=== PATIENT | male | born 1980 | race Caucasian/White ===

== ENCOUNTER 2016-12-09 15:13 | Inpatient (IN) | payer OTHER ==
[2016-12-09 18:25] VITALS: BMI 21.1
--- NOTE | 2016-12-09 20:14 | HP ---
CIWA Score - CIWA Score Nausea/Vomitin Muscle Tremors: 4-Moderate,w/Arms Extend Anxiety: 4-Mod. Anxious/Guarded Agitation: 4-Moderately Restless Paroxysmal Sweats: 3 Orientation: 2-Disoriented Date<2 days Tacttile Disturbances: 0-None Auditory Disturbances: 0-None Visual Disturbances: 3-Moderate Sensitivity Headache: 0-None Present CIWA-Ar Total Score: 23 Admission ROS BHS - HPI Chief Complaint: C/O WITHDRAWAL SX'S. SEEKING DETOX TXMENT Allergies/Adverse Reactions: Allergies Allergy/AdvReac Type Severity Reaction Status Date / Time No Known Allergies Allergy Verified 12/09/16 18:49 History of Present Illness: 36 Y.O. MLAE WITH OPIOID, ALCOHOLISM, BENZO DEPENDENCE ADMITTED FOR DETOX TXMENT. CLIENT IS CURRENTLY ON MMTP LDM 12/08/16 WITH TAKE HOME BOTTLE. PROGRAM GUY YANG PENDING VERIFICATION. CLIENT IS KNOWN TO [facility]. REPORTS LONGEST CLEAN TIME 6 MONTHS. Exam Limitations: No Limitations - Ebola screening Have you traveled outside of the country in the last 21 days: No Have you had contact with anyone from an Ebola affected area: No Have you been sick,other than usual withdrawal symptoms: No Do you have a fever: No - Review of Systems Constitutional: Chills, Unintentional Wgt. Loss EENT: reports: No Symptoms Reported Respiratory: reports: No Symptoms reported Cardiac: reports: No Symptoms Reported GI: reports: Nausea, Poor Appetite : reports: No Symptoms Reported Musculoskeletal: reports: No Symptoms Reported Integumentary: reports: No Symptoms Reported Neuro: reports: Seizure (ALCOHL AND BENZO WITHDRAWAL RELATED) Endocrine: reports: No Symptoms Reported Hematology: reports: No Symptoms Reported Psychiatric: reports: No Sypmtoms Reported Other Systems: Reviewed and Negative Patient History - Patient Medical History Hx Anemia: No Hx Asthma: No Hx Chronic Obstructive Pulmonary Disease (COPD): No Hx Cancer: No Hx Cardiac Disorders: No Hx Congestive Heart Failure: No Hx Hypertension: No Hx Hypercholesterolemia: No Hx Pacemaker: No HX Cerebrovascular Accident: No Hx Seizures: Yes (drug related) Hx Dementia: No Hx Diabetes: No Hx Gastrointestinal Disorders: No Hx Liver Disease: No Hx Genitourinary Disorders: No Hx Sexually Transmitted Disorders: No Hx Renal Disease (ESRD): No Hx Thyroid Disease: No Hx Human Immunodeficiency Virus (HIV): No Hx Hepatitis C: Yes (WAS TX'ED) Hx Depression: Yes (no med) Hx Suicide Attempt: No Hx Bipolar Disorder: No Hx Schizophrenia: No Other Medical History: DENIES - Patient Surgical History Past Surgical History: No Hx Neurologic Surgery: No Hx Cataract Extraction: No Hx Cardiac Surgery: No Hx Lung Surgery: No Hx Breast Surgery: No Hx Breast Biopsy: No Hx Abdominal Surgery: No Hx Appendectomy: No Hx Cholecystectomy: No Hx Genitourinary Surgery: No Hx Section: No Hx Orthopedic Surgery: No Anesthesia Reaction: No - PPD History Previous Implant?: Yes Documented Results: Negative w/proof Implanted On Prior R Admission?: Yes Date: 08/08/12 Results: 0 mm PPD to be Administered?: Yes - Smoking Cessation Smoking history: Current every day smoker Have you smoked in the past 12 months: Yes Aproximately how many cigarettes per day: 20 Cigars Per Day: 0 Hx Chewing Tobacco Use: No Initiated information on smoking cessation: Yes 'Breaking Loose' booklet given: 12/09/16 - Substance & Tx. History Hx Alcohol Use: Yes Hx Substance Use: Yes Substance Use Type: Alcohol, Cocaine, Marijuana, Tranquilizers (BENZO/KLONOPIN) Hx Substance Use Treatment: Yes ([facility]) - Substances Abused Alprazolam/KLONOPIN (Xanax) Route: Oral Frequency: Daily Amount used: 6mg Age of first use: 22 Date of Last Use: 12/09/16 BEER Route: Oral Frequency: Daily Amount used: 6- 8OZ BEERS Age of first use: 22 Date of Last Use: 12/08/16 COCAINE Route: Injection Frequency: 3-6 times per week Amount used: $20 Age of first use: 22 Date of Last Use: 12/08/16 THC Route: Smoking Frequency: Daily Amount used: $10 Age of first use: 18 Date of Last Use: 12/08/16 Family Disease History - Family Disease History Family Disease History: CA: Mother (), Other: Father (ESTRANGED) Admission Physical Exam BHS - Vital Signs Vital Signs: Vital Signs - 24 hr 12/09/16 18:18 Temperature 97.1 F L Pulse Rate 78 Respiratory 16 Rate Blood Pressure 102/59 - Physical General Appearance: Yes: Mild Distress, Tremorous, Irritable HEENTM: Yes: EOMI, Normocephalic, Normal Voice, PLACIDO, Pharynx Normal Respiratory: Yes: Chest Non-Tender, Lungs Clear, Normal Breath Sounds, No Respiratory Distress, No Accessory Muscle Use Neck: Yes: No masses,lesions,Nodules, Supple, Trachea in good position Breast: Yes: Breast Exam Deferred Cardiology: Yes: Regular Rhythm, Regular Rate, S1, S2 Abdominal: Yes: Normal Bowel Sounds, Non Tender, Flat, Soft Genitourinary: Yes: Within Normal Limits Back: Yes: Normal Inspection Musculoskeletal: Yes: full range of Motion, Gait Steady Extremities: Yes: Normal Capillary Refill, Normal Range of Motion, Non-Tender, Tremors 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, Alert, Motor Strength 5/5 Integumentary: Yes: Normal Color, Warm, Moist, Track [place] Lymphatic: Yes: Within Normal Limits - Diagnostic (1) seizure drug related Current Visit: Yes Status: Chronic (2) Alcohol dependence with uncomplicated withdrawal Current Visit: Yes Status: Chronic (3) Opioid dependence with withdrawal Current Visit: Yes Status: Chronic (4) Sedative, hypnotic or anxiolytic dependence with withdrawal, uncomplicated Current Visit: Yes Status: Chronic (5) Cocaine dependence, uncomplicated Current Visit: Yes Status: Chronic (6) Cannabis dependence, uncomplicated Current Visit: Yes Status: Chronic (7) Methadone maintenance therapy patient Current Visit: Yes Status: Chronic (8) Nicotine dependence Current Visit: Yes Status: Chronic Qualifiers: Nicotine product type: cigarettes Substance use status: uncomplicated Qualified Code(s): F17.210 - Nicotine dependence, cigarettes, uncomplicated Cleared for Admission [facility] - Detox or Rehab [facility] Level of Care: Medically Managed Detox Regimen/Protocol: Librium [facility] Breath Alcohol Content Breath Alcohol Content: 0 Urine Drug Screen - Results Drug Screen Negative: No Urine Drug Screen Results: THC-Marijuana, FABIOLA-Cocaine, OPI-Opiates, MTD- Methadone
[2016-12-09] MEDS ORDERED: ACETAMINOPHEN 325 MG TABLET (FP) PO PRN (20:28)
[2016-12-09] MEDS ORDERED: guaiFENesin/D-METHORPHAN HB 10 ML UNIT-DOSE CUPS PO PRN (20:28)
[2016-12-09] MEDS ORDERED: LOPERAMIDE HCL 2 MG CAPSULE PO PRN (20:28)
[2016-12-09] MEDS ORDERED: MENTHOL/PHENOL 1 EACH UD MM PRN (20:28)
[2016-12-09] MEDS ORDERED: MAGNESIUM CITRATE 300 ML BOTTLE PO PRN (20:28)
[2016-12-09] MEDS ORDERED: chlordiazePOXIDE HCL 25 MG CAPSULE PO PRN (20:28)
[2016-12-09] MEDS ORDERED: MAGNESIUM HYDROX 2400MG/30ML ORAL SUSPENSION 30 ML CUP PO PRN (20:28)
[2016-12-09] MEDS ORDERED: IBUPROFEN 400 MG TABLET (FP) PO PRN (20:28)
[2016-12-09] MEDS ORDERED: hydrOXYzine PAMOATE 50 MG CAPSULE (FP) PO PRN (20:28)
[2016-12-09] MEDS ORDERED: MAG HYDROX/AL HYDROX/SIMETH 30 ML UNIT-DOSE CUP PO PRN (20:28)
[2016-12-09] MEDS ORDERED: P-EPHED 60MG/TRIPROLIDI 2.5MG TABLET PO PRN (20:28)
[2016-12-09] MEDS: THIAMINE HCL 100 MG TABLET (FP) PO SCH (21:42)
[2016-12-09] MEDS: NICOTINE 21 MG/24 HOURS TOPICAL PATCH TD SCH (21:46)
[2016-12-09] MEDS: chlordiazePOXIDE HCL 25 MG CAPSULE PO SCH (22:06)
[2016-12-09] MEDS: diphenhydrAMINE HCL 50 MG CAPSULE PO PRN (22:06)
[2016-12-09 23:14] LABS: URINE APPEARANCE CLEAR; URINE BILIRUBIN NEGATIVE (NEGATIVE); URINE BLOOD NEGATIVE (NEGATIVE); URINE COLOR YELLOW; URINE GLUCOSE (UA) NEGATIVE (NEGATIVE); URINE KETONE NEGATIVE (NEGATIVE); URINE LEUK ESTERASE NEGATIVE (NEGATIVE); URINE NITRITE NEGATIVE (NEGATIVE); URINE UROBILINOGEN NEGATIVE E.U./dl (0.2-1.0)
[2016-12-09 23:15] LABS: URINE PROTEIN 1+ (NEGATIVE)
[2016-12-09 23:18] LABS: URINE MUCUS RARE; URINE RBC <1 /hpf (0-3); URINE WBC <1 /hpf (3-5)
[2016-12-10] MEDS: chlordiazePOXIDE HCL 25 MG CAPSULE PO SCH (05:47)
[2016-12-10] MEDS: METHADONE HCL 10 MG TABLET PO SCH (07:28)
[2016-12-10] MEDS ORDERED: diazePAM 5 MG TABLET PO ONE (09:11)
[2016-12-10] MEDS: NICOTINE 21 MG/24 HOURS TOPICAL PATCH TD SCH (09:40)
[2016-12-10] MEDS: NICOTINE POLACRILEX 2 MG GUM BC PRN ×4 (09:41→22:03)
[2016-12-10] MEDS: PRENATAL VITAMINS W/ FOLIC ACID TABLET (FP) PO SCH (09:41)
--- NOTE | 2016-12-10 09:50 | PN ---
S CIWA - CIWA Score Nausea/Vomitin-No Nausea/No Vomiting Muscle Tremors: 3 Anxiety: 4-Mod. Anxious/Guarded Agitation: 4-Moderately Restless Paroxysmal Sweats: 3 Orientation: 0-Oriented Tacttile Disturbances: 0-None Auditory Disturbances: 0-None Visual Disturbances: 0-None Headache: 0-None Present CIWA-Ar Total Score: 14 BHS Progress Note (SOAP) Subjective: Anxiety,tremors,sweating,interrupted sleep,restless Objective: 12/10/16 09:48 Vital Signs - 8 hr 12/10/16 12/10/16 03:23 06:16 Temperature 96.5 F L Pulse Rate 66 Respiratory 16 16 Rate Blood Pressure 108/77 Laboratory Tests 12/09/16 22:00 Urine Color Yellow Urine Appearance Clear Urine pH 7.0 D Ur Specific [place] 1.026 Urine Protein 1+ H Urine Glucose (UA) Negative Urine Ketones Negative Urine Blood Negative Urine Nitrite Negative Urine Bilirubin Negative Urine Urobilinogen Negative Ur Leukocyte Esterase Negative Urine RBC <1 Urine WBC <1 Urine Mucus Rare U/A noted Assessment: 12/10/16 09:49 Withdrawal sx. Plan: Continue detox
[2016-12-10 10:00] LABS: MCH 29.8 pg (25.7-33.7); MCHC 33.7 g/dl (32.0-35.9); MEAN CELL VOLUME 88.3 fl (80-96); MEAN PLT VOLUME 9.2 fl (7.5-11.1); PLATELET COUNT 160 K/MM3 (134-434); RDW 13.9 % (11.9-15.9); WHITE BLOOD COUNT 4.4 K/mm3 (4.0-10.0)
[2016-12-10 10:27] LABS: ALBUMIN 3.8 g/dl (3.4-5.0); ALK PHOS 81 U/L (45-117); ANION GAP 7 (8-16); BILIRUBIN,TOTAL 0.5 mg/dL (0.2-1.0); CO2 28 mmol/L (21-32); CREATININE 0.9 mg/dL (0.7-1.3); GLUCOSE,RANDOM 87 mg/dL (74-106); SGOT/AST 33 U/L (15-37); SGPT/ALT 27 U/L (12-78); TOT PROT 7.5 g/dl (6.4-8.2)
[2016-12-10] MEDS: diazePAM 5 MG TABLET PO SCH ×2 (13:53→22:01)
--- NOTE | 2016-12-10 16:54 | EKG ---
Test Reason : Blood Pressure : / mmHG Vent. Rate : 068 BPM Atrial Rate : 068 BPM P-R Int : 166 ms QRS Dur : 098 ms QT Int : 398 ms P-R-T Axes : 064 076 061 degrees QTc Int : 423 ms NORMAL SINUS RHYTHM NORMAL ECG NO PREVIOUS ECGS AVAILABLE Confirmed by LEE SILVA MD ([id number]) on 12/10/2016 4:54:50 PM Referred By: Confirmed By:LEE SILVA MD
[2016-12-10] MEDS: diazePAM 5 MG TABLET PO PRN (17:50)
[2016-12-10] MEDS: diphenhydrAMINE HCL 50 MG CAPSULE PO PRN (22:01)
[2016-12-10] MEDS: THIAMINE HCL 100 MG TABLET (FP) PO SCH (22:01)
[2016-12-10] MEDS ORDERED: chlordiazePOXIDE HCL 25 MG CAPSULE PO SCH (23:00)
[2016-12-11] MEDS: METHADONE HCL 10 MG TABLET PO SCH (05:49)
[2016-12-11] MEDS: diazePAM 5 MG TABLET PO SCH ×3 (05:49→21:58)
--- NOTE | 2016-12-11 09:35 | PN ---
S CIWA - CIWA Score Nausea/Vomitin Muscle Tremors: 3 Anxiety: 3 Agitation: 3 Paroxysmal Sweats: 1-Minimal Palms Moist Orientation: 0-Oriented Tacttile Disturbances: 1-Very Mild Itch/Numbness Auditory Disturbances: 1-Very Mild Visual Disturbances: 1-Very Mild Sensitivity Headache: 2-Mild CIWA-Ar Total Score: 18 BHS Progress Note (SOAP) Subjective: ALERT,IRRITABLE,ANXIOUS,INTERRUPTED SLEEP,TREMOR,PAIN IN THE BODY AND BACK Objective: 12/11/16 09:33 Vital Signs Temperature 97 F L 12/11/16 06:33 Pulse Rate 63 12/11/16 06:33 Respiratory Rate 16 12/11/16 06:33 Blood Pressure 117/80 12/11/16 06:33 O2 Sat by Pulse Oximetry (%) EKG NSR,NORMAL ECG Laboratory Last Values WBC 4.4 K/mm3 (4.0-10.0) D 12/10/16 07:10 RBC 4.71 M/mm3 (4.00-5.60) 12/10/16 07:10 Hgb 14.0 GM/dL (11.7-16.9) 12/10/16 07:10 Hct 41.6 % (35.4-49) 12/10/16 07:10 MCV 88.3 fl (80-96) 12/10/16 07:10 MCHC 33.7 g/dl (32.0-35.9) 12/10/16 07:10 RDW 13.9 % (11.9-15.9) D 12/10/16 07:10 Plt Count 160 K/MM3 (134-434) 12/10/16 07:10 MPV 9.2 fl (7.5-11.1) 12/10/16 07:10 Sodium 139 mmol/L (136-145) 12/10/16 07:10 Potassium 4.9 mmol/L (3.5-5.1) 12/10/16 07:10 Chloride 104 mmol/L (98-107) 12/10/16 07:10 Carbon Dioxide 28 mmol/L (21-32) 12/10/16 07:10 Anion Gap 7 (8-16) L 12/10/16 07:10 BUN 15 mg/dL (7-18) D 12/10/16 07:10 Creatinine 0.9 mg/dL (0.7-1.3) D 12/10/16 07:10 Creat Clearance w eGFR > 60 (>60) 12/10/16 07:10 Random Glucose 87 mg/dL (74-106) 12/10/16 07:10 Calcium 9.0 mg/dL (8.5-10.1) 12/10/16 07:10 Total Bilirubin 0.5 mg/dL (0.2-1.0) D 12/10/16 07:10 AST 33 U/L (15-37) D 12/10/16 07:10 ALT 27 U/L (12-78) D 12/10/16 07:10 Alkaline Phosphatase 81 U/L (45-117) 12/10/16 07:10 Total Protein 7.5 g/dl (6.4-8.2) 12/10/16 07:10 Albumin 3.8 g/dl (3.4-5.0) 12/10/16 07:10 Urine Color Yellow 12/09/16 22:00 Urine Appearance Clear 12/09/16 22:00 Urine pH 7.0 (5.0-8.0) D 12/09/16 22:00 Ur Specific [place] 1.026 (1.001-1.035) 12/09/16 22:00 Urine Protein 1+ (NEGATIVE) H 12/09/16 22:00 Urine Glucose (UA) Negative (NEGATIVE) 12/09/16 22:00 Urine Ketones Negative (NEGATIVE) 12/09/16 22:00 Urine Blood Negative (NEGATIVE) 12/09/16 22:00 Urine Nitrite Negative (NEGATIVE) 12/09/16 22:00 Urine Bilirubin Negative (NEGATIVE) 12/09/16 22:00 Urine Urobilinogen Negative E.U./dl (0.2-1.0) 12/09/16 22:00 Ur Leukocyte Esterase Negative (NEGATIVE) 12/09/16 22:00 Urine RBC <1 /hpf (0-3) 12/09/16 22:00 Urine WBC <1 /hpf (3-5) 12/09/16 22:00 Urine Mucus Rare 12/09/16 22:00 RPR Titer Nonreactive (NONREACTIVE) 12/10/16 07:10 Assessment: 12/11/16 09:34 WITHDRAWAL SYMPTOM Plan: CONTINUE DETOX
[2016-12-11] MEDS: CYCLOBENZAPRINE HCL 10 MG TABLET (FP) PO PRN ×3 (10:06→22:00)
[2016-12-11] MEDS: cloNIDine HCL 0.1 MG TABLET PO SCH ×2 (10:06→21:58)
[2016-12-11] MEDS: PRENATAL VITAMINS W/ FOLIC ACID TABLET (FP) PO SCH (10:07)
[2016-12-11] MEDS: NICOTINE POLACRILEX 2 MG GUM BC PRN ×5 (10:07→22:02)
[2016-12-11] MEDS: diazePAM 5 MG TABLET PO PRN ×2 (10:07→17:03)
[2016-12-11] MEDS: NICOTINE 21 MG/24 HOURS TOPICAL PATCH TD SCH (10:12)
[2016-12-11] MEDS: THIAMINE HCL 100 MG TABLET (FP) PO SCH (21:59)
[2016-12-11] MEDS: hydrOXYzine PAMOATE 50 MG CAPSULE (FP) PO SCH (21:59)
[2016-12-11] MEDS ORDERED: chlordiazePOXIDE 5 MG CAPSULE PO SCH (23:00)
[2016-12-12] MEDS: METHADONE HCL 10 MG TABLET PO SCH (06:36)
[2016-12-12] MEDS: diazePAM 5 MG TABLET PO PRN ×3 (06:37→17:24)
[2016-12-12] MEDS: CYCLOBENZAPRINE HCL 10 MG TABLET (FP) PO PRN (06:37)
[2016-12-12] MEDS ORDERED: METHADONE HCL 10 MG TABLET PO SCH ×3 (10:00)
[2016-12-12] MEDS: NICOTINE 21 MG/24 HOURS TOPICAL PATCH TD SCH (10:12)
[2016-12-12] MEDS: diazePAM 5 MG TABLET PO SCH ×2 (10:13→22:01)
[2016-12-12] MEDS: cloNIDine HCL 0.1 MG TABLET PO SCH ×2 (10:13→22:00)
[2016-12-12] MEDS: PRENATAL VITAMINS W/ FOLIC ACID TABLET (FP) PO SCH (10:13)
[2016-12-12] MEDS: NICOTINE POLACRILEX 2 MG GUM BC PRN ×4 (10:14→22:01)
--- NOTE | 2016-12-12 10:45 | PN ---
BHS Progress Note (SOAP) Subjective: Sweating,interrupted sleep,restless Objective: 12/12/16 10:44 Vital Signs - 8 hr 12/12/16 12/12/16 12/12/16 03:16 06:25 09:40 Temperature 96.6 F L 97.0 F L Pulse Rate 77 89 Respiratory 18 16 18 Rate Blood Pressure 101/69 103/66 Laboratory Last Values WBC 4.4 K/mm3 (4.0-10.0) D 12/10/16 07:10 RBC 4.71 M/mm3 (4.00-5.60) 12/10/16 07:10 Hgb 14.0 GM/dL (11.7-16.9) 12/10/16 07:10 Hct 41.6 % (35.4-49) 12/10/16 07:10 MCV 88.3 fl (80-96) 12/10/16 07:10 MCHC 33.7 g/dl (32.0-35.9) 12/10/16 07:10 RDW 13.9 % (11.9-15.9) D 12/10/16 07:10 Plt Count 160 K/MM3 (134-434) 12/10/16 07:10 MPV 9.2 fl (7.5-11.1) 12/10/16 07:10 Sodium 139 mmol/L (136-145) 12/10/16 07:10 Potassium 4.9 mmol/L (3.5-5.1) 12/10/16 07:10 Chloride 104 mmol/L (98-107) 12/10/16 07:10 Carbon Dioxide 28 mmol/L (21-32) 12/10/16 07:10 Anion Gap 7 (8-16) L 12/10/16 07:10 BUN 15 mg/dL (7-18) D 12/10/16 07:10 Creatinine 0.9 mg/dL (0.7-1.3) D 12/10/16 07:10 Creat Clearance w eGFR > 60 (>60) 12/10/16 07:10 Random Glucose 87 mg/dL (74-106) 12/10/16 07:10 Calcium 9.0 mg/dL (8.5-10.1) 12/10/16 07:10 Total Bilirubin 0.5 mg/dL (0.2-1.0) D 12/10/16 07:10 AST 33 U/L (15-37) D 12/10/16 07:10 ALT 27 U/L (12-78) D 12/10/16 07:10 Alkaline Phosphatase 81 U/L (45-117) 12/10/16 07:10 Total Protein 7.5 g/dl (6.4-8.2) 12/10/16 07:10 Albumin 3.8 g/dl (3.4-5.0) 12/10/16 07:10 Urine Color Yellow 12/09/16 22:00 Urine Appearance Clear 12/09/16 22:00 Urine pH 7.0 (5.0-8.0) D 12/09/16 22:00 Ur Specific [place] 1.026 (1.001-1.035) 12/09/16 22:00 Urine Protein 1+ (NEGATIVE) H 12/09/16 22:00 Urine Glucose (UA) Negative (NEGATIVE) 12/09/16 22:00 Urine Ketones Negative (NEGATIVE) 12/09/16 22:00 Urine Blood Negative (NEGATIVE) 12/09/16 22:00 Urine Nitrite Negative (NEGATIVE) 12/09/16 22:00 Urine Bilirubin Negative (NEGATIVE) 12/09/16 22:00 Urine Urobilinogen Negative E.U./dl (0.2-1.0) 12/09/16 22:00 Ur Leukocyte Esterase Negative (NEGATIVE) 12/09/16 22:00 Urine RBC <1 /hpf (0-3) 12/09/16 22:00 Urine WBC <1 /hpf (3-5) 12/09/16 22:00 Urine Mucus Rare 12/09/16 22:00 RPR Titer Nonreactive (NONREACTIVE) 12/10/16 07:10 labs noted Assessment: 12/12/16 10:45 Withdrawal sx. Plan: Continue detox
[2016-12-12] MEDS: CYCLOBENZAPRINE HCL 10 MG TABLET (FP) PO SCH ×2 (13:25→22:00)
[2016-12-12] MEDS: THIAMINE HCL 100 MG TABLET (FP) PO SCH (22:00)
[2016-12-12] MEDS: hydrOXYzine PAMOATE 50 MG CAPSULE (FP) PO SCH (22:01)
[2016-12-12] MEDS ORDERED: chlordiazePOXIDE HCL 10 MG CAPSULE PO SCH (23:00)
[2016-12-13] MEDS: diazePAM 5 MG TABLET PO PRN (05:34)
[2016-12-13] MEDS: METHADONE HCL 10 MG TABLET PO SCH (05:35)
[2016-12-13] MEDS: CYCLOBENZAPRINE HCL 10 MG TABLET (FP) PO SCH (05:36)
[2016-12-13 06:29] VITALS: BP 103/65; PULSE 73; TEMP 96
[2016-12-13] MEDS ORDERED: diazePAM 5 MG TABLET PO SCH (10:00)
--- NOTE | 2016-12-13 11:37 | DS ---
[facility] Detox Discharge Summary Admission Date: 12/09/16 Discharge Date: 12/13/16 - History Present History: Alcohol Dependence, Cannabis Dependence, Cocaine Dependence, Sedative Dependence Additional Comments: ADVISED PATIENT TO FOLLOW-UP WITH [facility] / REHAB MEDICAL PROVIDER AFTER DISCHARGE FROM DETOX FOR GENERAL MEDICAL ASSESSMENT AND FOR ANY ABNORMAL ADMISSION LAB VALUES. Pertinent Past History: Seizures (drug-related), Hep C (Treated), Depression. - Physical Exam Results Vital Signs: Vital Signs Temperature 96 F L 12/13/16 06:28 Pulse Rate 73 12/13/16 06:28 Respiratory Rate 18 12/13/16 06:28 Blood Pressure 103/65 12/13/16 06:28 O2 Sat by Pulse Oximetry (%) Pertinent Admission Physical Exam Findings: WITHDRAWAL SYMPTOMS. Laboratory Last Values WBC 4.4 K/mm3 (4.0-10.0) D 12/10/16 07:10 RBC 4.71 M/mm3 (4.00-5.60) 12/10/16 07:10 Hgb 14.0 GM/dL (11.7-16.9) 12/10/16 07:10 Hct 41.6 % (35.4-49) 12/10/16 07:10 MCV 88.3 fl (80-96) 12/10/16 07:10 MCHC 33.7 g/dl (32.0-35.9) 12/10/16 07:10 RDW 13.9 % (11.9-15.9) D 12/10/16 07:10 Plt Count 160 K/MM3 (134-434) 12/10/16 07:10 MPV 9.2 fl (7.5-11.1) 12/10/16 07:10 Sodium 139 mmol/L (136-145) 12/10/16 07:10 Potassium 4.9 mmol/L (3.5-5.1) 12/10/16 07:10 Chloride 104 mmol/L (98-107) 12/10/16 07:10 Carbon Dioxide 28 mmol/L (21-32) 12/10/16 07:10 Anion Gap 7 (8-16) L 12/10/16 07:10 BUN 15 mg/dL (7-18) D 12/10/16 07:10 Creatinine 0.9 mg/dL (0.7-1.3) D 12/10/16 07:10 Creat Clearance w eGFR > 60 (>60) 12/10/16 07:10 Random Glucose 87 mg/dL (74-106) 12/10/16 07:10 Calcium 9.0 mg/dL (8.5-10.1) 12/10/16 07:10 Total Bilirubin 0.5 mg/dL (0.2-1.0) D 12/10/16 07:10 AST 33 U/L (15-37) D 12/10/16 07:10 ALT 27 U/L (12-78) D 12/10/16 07:10 Alkaline Phosphatase 81 U/L (45-117) 12/10/16 07:10 Total Protein 7.5 g/dl (6.4-8.2) 12/10/16 07:10 Albumin 3.8 g/dl (3.4-5.0) 12/10/16 07:10 Urine Color Yellow 12/09/16 22:00 Urine Appearance Clear 12/09/16 22:00 Urine pH 7.0 (5.0-8.0) D 12/09/16 22:00 Ur Specific [place] 1.026 (1.001-1.035) 12/09/16 22:00 Urine Protein 1+ (NEGATIVE) H 12/09/16 22:00 Urine Glucose (UA) Negative (NEGATIVE) 12/09/16 22:00 Urine Ketones Negative (NEGATIVE) 12/09/16 22:00 Urine Blood Negative (NEGATIVE) 12/09/16 22:00 Urine Nitrite Negative (NEGATIVE) 12/09/16 22:00 Urine Bilirubin Negative (NEGATIVE) 12/09/16 22:00 Urine Urobilinogen Negative E.U./dl (0.2-1.0) 12/09/16 22:00 Ur Leukocyte Esterase Negative (NEGATIVE) 12/09/16 22:00 Urine RBC <1 /hpf (0-3) 12/09/16 22:00 Urine WBC <1 /hpf (3-5) 12/09/16 22:00 Urine Mucus Rare 12/09/16 22:00 RPR Titer Nonreactive (NONREACTIVE) 12/10/16 07:10 LABS NOTED. - Treatment Hospital Course: Detox Protocol Followed, Detoxed Safely, Responded well, Discharged Condition Good, Rehab Referral Accepted Patient has Accepted a Rehab Referral to: YES - [facility]. - Medication Discharge Medications: Ambulatory Orders NK [No Known Home Medication] 12/09/16 - Diagnosis (1) Anxiety disorder Status: Chronic (2) Cocaine dependence Status: Acute (3) DEPRESSION Status: Chronic (4) Hepatitis C carrier Status: Chronic (5) Sedative dependence Status: Acute (6) Weight decreased Status: Acute (7) Alcohol dependence with uncomplicated withdrawal Status: Acute (8) Cannabis dependence, uncomplicated Status: Acute (9) Cocaine dependence, uncomplicated Status: Acute (10) Nicotine dependence Status: Chronic Qualifiers: Nicotine product type: cigarettes Substance use status: uncomplicated Qualified Code(s): F17.210 - Nicotine dependence, cigarettes, uncomplicated (11) Sedative, hypnotic or anxiolytic dependence with withdrawal, uncomplicated Status: Acute (12) seizure drug related Status: Chronic (13) Opioid dependence Status: Chronic (14) Methadone maintenance therapy patient Status: Chronic - AMA Did Patient Leave Against Medical Advice: No
== END 2016-12-13 09:10 | disposition home or self-care (01) | DRG 773 ==
LOC: YASAS 15:13 → Y3N 18:24
PROVIDERS: ADMIT Internal Medicine; ATTEND Internal Medicine
PROC: HZ2ZZZZ Detoxification Services for Substance Abuse Treatment (ICD-10-PCS; principal; 2016-12-13)
DX: F11.20 Opioid dependence, uncomplicated (principal); F13.230 Sedative, hypnotic or anxiolytic dependence with withdrawal, uncomplicated; F10.230 Alcohol dependence with withdrawal, uncomplicated; F14.20 Cocaine dependence, uncomplicated; F12.20 Cannabis dependence, uncomplicated; F17.210 Nicotine dependence, cigarettes, uncomplicated; F32.9 Major depressive disorder, single episode, unspecified; G40.509 Epileptic seizures related to external causes, not intractable, without status epilepticus; B18.2 Chronic viral hepatitis C; R63.4 Abnormal weight loss; Z68.21 Body mass index [BMI] 21.0-21.9, adult
CPT/HCPCS: 36415; 80053; 81003; 81015; 85027; 86593; 93005; 93010

== ENCOUNTER 2021-01-26 10:23 | Inpatient (IN) | payer OTHER ==
[2021-01-26 12:33] VITALS: BMI 19.5
[2021-01-26] MEDS ORDERED: MAG HYDROX/AL HYDROX/SIMETH 30 ML UNIT-DOSE CUP PO PRN (12:33)
[2021-01-26] MEDS ORDERED: IBUPROFEN 400 MG TABLET (FP) PO PRN (12:33)
[2021-01-26] MEDS ORDERED: BISMUTH SUBSALICYLATE 524 MG/30 ML UD PO PRN (12:33)
[2021-01-26] MEDS ORDERED: ACETAMINOPHEN 325 MG TABLET (FP) PO PRN ×2 (12:33)
[2021-01-26] MEDS ORDERED: MENTHOL/PHENOL 1 EACH UD MM PRN (12:33)
[2021-01-26] MEDS ORDERED: ONDANSETRON *ODT* 4 MG TABLET SL PRN (12:33)
[2021-01-26] MEDS ORDERED: MAGNESIUM CITRATE 300 ML BOTTLE PO PRN (12:33)
[2021-01-26] MEDS ORDERED: MAGNESIUM HYDROX 2400MG/30ML ORAL SUSPENSION 30 ML CUP PO PRN (12:33)
[2021-01-26] MEDS ORDERED: diazePAM 5 MG TABLET ONE (13:00)
[2021-01-26] MEDS: diazePAM 5 MG TABLET PO SCH ×3 (13:04→22:20)
[2021-01-26] MEDS: hydrOXYzine PAMOATE 25 MG CAPSULE (FP) PO SCH ×3 (14:17→22:20)
[2021-01-26] MEDS: PRENATAL VITAMINS W/ FOLIC ACID TABLET (FP) PO SCH (16:03)
[2021-01-26] MEDS: diazePAM 5 MG TABLET PO PRN (16:06)
[2021-01-26] MEDS: NICOTINE POLACRILEX 2 MG GUM BUC PRN ×2 (16:10→20:22)
[2021-01-26 17:20] LABS: CALCIUM 8.7 mg/dL (8.5-10.1)
[2021-01-26 17:21] LABS: BLOOD UREA NITROGEN 14.2 mg/dL (7-18)
[2021-01-26 17:24] LABS: CREATININE 0.8 mg/dL (0.55-1.3)
[2021-01-26 17:25] LABS: BILIRUBIN,TOTAL 0.5 mg/dL (0.2-1); TOT PROT 7.5 g/dl (6.4-8.2)
[2021-01-26 17:27] LABS: HEMATOCRIT 38.4 % (35.4-49); MCH 30.9 pg (25.7-33.7); MEAN PLT VOLUME 9.7 fl (7.5-11.1); PLATELET COUNT 151 K/MM3 (134-434); RBC 4.22 M/mm3 (4.00-5.60); RDW 13.2 % (11.9-15.9); WHITE BLOOD COUNT 5.3 K/mm3 (4.0-10.0)
[2021-01-26] MEDS ORDERED: MELATONIN 5 MG TABLETS PO SCH (22:00)
[2021-01-26] MEDS: THIAMINE HCL 100 MG TABLET (FP) PO SCH (22:20)
[2021-01-27] MEDS: diazePAM 5 MG TABLET PO SCH ×4 (05:50→22:20)
[2021-01-27] MEDS: hydrOXYzine PAMOATE 25 MG CAPSULE (FP) PO SCH ×5 (05:50→22:19)
[2021-01-27] MEDS ORDERED: METHADONE HCL 10 MG TABLET ONE (06:44)
[2021-01-27] MEDS ORDERED: METHADONE HCL 40 MG DISPERSABLE TABLET ONE (06:45)
[2021-01-27] MEDS: METHADONE 40 MG, METHADONE 30 MG PO SCH (06:45)
[2021-01-27] MEDS ORDERED: METHADONE HCL 40 MG DISPERSABLE TABLET PO SCH (10:00)
[2021-01-27] MEDS ORDERED: METHADONE 40 MG, METHADONE 30 MG PO SCH (10:00)
[2021-01-27] MEDS: PRENATAL VITAMINS W/ FOLIC ACID TABLET (FP) PO SCH (10:20)
[2021-01-27] MEDS: NICOTINE POLACRILEX 2 MG GUM BUC PRN ×4 (10:21→22:23)
[2021-01-27] MEDS: diazePAM 5 MG TABLET PO PRN (13:04)
[2021-01-27] MEDS: THIAMINE HCL 100 MG TABLET (FP) PO SCH ×2 (22:19→23:44)
[2021-01-27] MEDS: MELATONIN 5 MG TABLETS PO PRN (22:20)
[2021-01-27] MEDS: METHOCARBAMOL 500 MG TABLET PO PRN (22:21)
[2021-01-28] MEDS ORDERED: METHADONE HCL 10 MG TABLET ONE (04:58)
[2021-01-28] MEDS ORDERED: METHADONE HCL 40 MG DISPERSABLE TABLET ONE (04:59)
[2021-01-28] MEDS: hydrOXYzine PAMOATE 25 MG CAPSULE (FP) PO SCH ×5 (06:21→22:09)
[2021-01-28] MEDS: diazePAM 5 MG TABLET PO SCH ×3 (06:21→22:09)
[2021-01-28] MEDS: METHADONE 40 MG, METHADONE 30 MG PO SCH (06:22)
[2021-01-28] MEDS: NICOTINE POLACRILEX 2 MG GUM BUC PRN ×5 (06:25→22:12)
[2021-01-28] MEDS: PRENATAL VITAMINS W/ FOLIC ACID TABLET (FP) PO SCH (10:20)
[2021-01-28] MEDS: diazePAM 5 MG TABLET PO PRN ×2 (10:21→17:19)
[2021-01-28] MEDS: THIAMINE HCL 100 MG TABLET (FP) PO SCH (22:09)
[2021-01-28] MEDS: MELATONIN 5 MG TABLETS PO PRN (22:09)
[2021-01-28] MEDS: METHOCARBAMOL 500 MG TABLET PO PRN (22:10)
[2021-01-29] MEDS ORDERED: METHADONE HCL 10 MG TABLET ONE (04:13)
[2021-01-29] MEDS ORDERED: METHADONE HCL 40 MG DISPERSABLE TABLET ONE (04:14)
[2021-01-29] MEDS: diazePAM 5 MG TABLET PO SCH ×2 (05:44→17:28)
[2021-01-29] MEDS: METHADONE 40 MG, METHADONE 30 MG PO SCH (05:44)
[2021-01-29] MEDS: hydrOXYzine PAMOATE 25 MG CAPSULE (FP) PO SCH ×3 (05:45→13:42)
[2021-01-29] MEDS: NICOTINE POLACRILEX 2 MG GUM BUC PRN ×5 (05:47→17:29)
[2021-01-29] MEDS: diazePAM 5 MG TABLET PO PRN ×3 (10:25→22:20)
[2021-01-29] MEDS: PRENATAL VITAMINS W/ FOLIC ACID TABLET (FP) PO SCH (10:25)
[2021-01-29] MEDS: METHOCARBAMOL 500 MG TABLET PO PRN ×2 (13:42→22:20)
[2021-01-29] MEDS ORDERED: hydrOXYzine PAMOATE 25 MG CAPSULE (FP) PO PRN (14:14)
[2021-01-29] MEDS: MELATONIN 5 MG TABLETS PO PRN (22:20)
[2021-01-29] MEDS: THIAMINE HCL 100 MG TABLET (FP) PO SCH (22:20)
[2021-01-30] MEDS ORDERED: METHADONE HCL 10 MG TABLET ONE (03:54)
[2021-01-30] MEDS ORDERED: METHADONE HCL 40 MG DISPERSABLE TABLET ONE (03:55)
[2021-01-30] MEDS: METHADONE 40 MG, METHADONE 30 MG PO SCH (05:45)
[2021-01-30] MEDS ORDERED: diazePAM 5 MG TABLET PO ONE (06:00)
[2021-01-30 06:06] LABS: SARS-CoV-2 NAA Not Detected (Not Detected)
[2021-01-30 08:53] VITALS: BP 106/66; PULSE 70; TEMP 97.1
== END 2021-01-30 09:07 | disposition home or self-care (01) | DRG 773 ==
LOC: YASAS 10:23 → Y3N 14:13
PROVIDERS: ADMIT Allergy & Immunology; ATTEND Allergy & Immunology
PROC: HZ2ZZZZ Detoxification Services for Substance Abuse Treatment (ICD-10-PCS; principal; 2021-01-26)
DX: F10.230 Alcohol dependence with withdrawal, uncomplicated (principal); F13.230 Sedative, hypnotic or anxiolytic dependence with withdrawal, uncomplicated; F11.20 Opioid dependence, uncomplicated; F14.20 Cocaine dependence, uncomplicated; F17.210 Nicotine dependence, cigarettes, uncomplicated; F19.282 Other psychoactive substance dependence with psychoactive substance-induced sleep disorder; F19.280 Other psychoactive substance dependence with psychoactive substance-induced anxiety disorder; F19.24 Other psychoactive substance dependence with psychoactive substance-induced mood disorder; F41.9 Anxiety disorder, unspecified; F32.9 Major depressive disorder, single episode, unspecified; G40.89 Other seizures; B18.2 Chronic viral hepatitis C; R63.4 Abnormal weight loss; Z68.1 Body mass index [BMI] 19.9 or less, adult
CPT/HCPCS: 36415; 80053; 85027; 86780; C9803; U0003; U0005

== ENCOUNTER 2022-03-22 09:42 | Inpatient (IN) | payer OTHER ==
[2022-03-22 10:17] VITALS: BMI 18.3
[2022-03-22] MEDS ORDERED: LOPERAMIDE HCL 2 MG CAPSULE PO PRN (10:23)
[2022-03-22] MEDS ORDERED: BENZOCAINE/MENTHOL (CHLORASEPTIC ) LOZENGE MM PRN (10:23)
[2022-03-22] MEDS ORDERED: METHOCARBAMOL 500 MG TABLET PO PRN (10:23)
[2022-03-22] MEDS ORDERED: ONDANSETRON *ODT* 4 MG TABLET SL PRN (10:23)
[2022-03-22] MEDS ORDERED: MAG HYDROX/AL HYDROX/SIMETH 30 ML UNIT-DOSE CUP PO PRN (10:23)
[2022-03-22] MEDS ORDERED: DICYCLOMINE HCL 10 MG CAPSULE PO PRN (10:23)
[2022-03-22] MEDS ORDERED: MAGNESIUM CITRATE 300 ML BOTTLE PO PRN (10:23)
[2022-03-22] MEDS ORDERED: ACETAMINOPHEN 325 MG TABLET (FP) PO PRN ×2 (10:23)
[2022-03-22] MEDS ORDERED: IBUPROFEN 400 MG TABLET (FP) PO PRN (10:23)
[2022-03-22] MEDS ORDERED: IBUPROFEN 600 MG TABLET (FP) PO PRN (10:23)
[2022-03-22] MEDS ORDERED: BISMUTH SUBSALICYLATE 524 MG/30 ML PO PRN (10:23)
[2022-03-22] MEDS ORDERED: MAGNESIUM HYDROX 2400MG/30ML ORAL SUSPENSION 30 ML CUP PO PRN (10:23)
[2022-03-22] MEDS ORDERED: diazePAM 5 MG TABLET ONE (10:42)
[2022-03-22] MEDS: diazePAM 5 MG TABLET PO SCH ×3 (10:44→22:22)
[2022-03-22] MEDS: PRENATAL VITAMINS W/ FOLIC ACID TABLET (FP) PO SCH (11:14)
[2022-03-22 11:59] LABS: HEMATOCRIT 38.8 % (35.4-49); HEMOGLOBIN 13.2 GM/dL (11.7-16.9); MCH 29.7 pg (25.7-33.7); MCHC 33.9 g/dl (32.0-35.9); MEAN CELL VOLUME 87.7 fl (80-96); MEAN PLT VOLUME 8.1 fl (7.5-11.1); PLATELET COUNT 183 10^3/uL (134-434); RBC 4.43 M/mm3 (4.00-5.60); RDW 12.9 % (11.9-15.9); WHITE BLOOD COUNT 5.9 K/mm3 (4.0-10.0)
[2022-03-22 12:06] LABS: CALCIUM 9.2 mg/dL (8.5-10.1)
[2022-03-22 12:07] LABS: ALBUMIN 3.9 g/dl (3.4-5.0); BLOOD UREA NITROGEN 13.8 mg/dL (7-18)
[2022-03-22 12:11] LABS: BILIRUBIN,TOTAL 0.9 mg/dL (0.2-1)
[2022-03-22 12:12] LABS: TOT PROT 7.7 g/dl (6.4-8.2)
[2022-03-22] MEDS: hydrOXYzine PAMOATE 25 MG CAPSULE (FP) PO SCH ×3 (14:34→22:21)
[2022-03-22] MEDS: diazePAM 5 MG TABLET PO PRN (15:35)
[2022-03-22] MEDS: NICOTINE POLACRILEX 4 MG GUM BUC PRN ×2 (17:19→22:22)
[2022-03-22] MEDS ORDERED: MELATONIN 5 MG TABLETS PO SCH (22:00)
[2022-03-22] MEDS: THIAMINE HCL 100 MG TABLET (FP) PO SCH (22:22)
[2022-03-22] MEDS: MELATONIN 5 MG TABLETS PO SCH (22:22)
[2022-03-23] MEDS: NICOTINE POLACRILEX 4 MG GUM BUC PRN (04:34)
[2022-03-23] MEDS: methaDONE HCL 40 MG DISPERSABLE TABLET PO SCH (05:05)
[2022-03-23] MEDS: diazePAM 5 MG TABLET PO SCH ×4 (05:06→22:30)
[2022-03-23] MEDS: hydrOXYzine PAMOATE 25 MG CAPSULE (FP) PO SCH ×5 (05:06→22:30)
[2022-03-23] MEDS: diazePAM 5 MG TABLET PO PRN ×3 (08:39→16:34)
[2022-03-23] MEDS ORDERED: methaDONE HCL 40 MG DISPERSABLE TABLET PO SCH (10:00)
[2022-03-23] MEDS: PRENATAL VITAMINS W/ FOLIC ACID TABLET (FP) PO SCH (10:06)
[2022-03-23] MEDS: MELATONIN 5 MG TABLETS PO SCH (22:30)
[2022-03-23] MEDS: THIAMINE HCL 100 MG TABLET (FP) PO SCH (22:30)
[2022-03-24] MEDS: diazePAM 5 MG TABLET PO PRN ×4 (03:01→19:25)
[2022-03-24] MEDS: hydrOXYzine PAMOATE 25 MG CAPSULE (FP) PO SCH ×5 (04:59→22:02)
[2022-03-24] MEDS: diazePAM 5 MG TABLET PO SCH ×3 (04:59→22:02)
[2022-03-24] MEDS: methaDONE HCL 40 MG DISPERSABLE TABLET PO SCH (04:59)
[2022-03-24] MEDS: NICOTINE POLACRILEX 4 MG GUM BUC PRN ×3 (05:00→22:03)
[2022-03-24] MEDS: NICOTINE 10 MG CARTRIDGE (INHALER) IH PRN ×2 (10:11→17:02)
[2022-03-24] MEDS: PRENATAL VITAMINS W/ FOLIC ACID TABLET (FP) PO SCH (10:12)
[2022-03-24] MEDS: MELATONIN 5 MG TABLETS PO SCH (22:01)
[2022-03-24] MEDS: THIAMINE HCL 100 MG TABLET (FP) PO SCH (22:02)
[2022-03-25] MEDS: diazePAM 5 MG TABLET PO PRN ×2 (02:35→07:33)
[2022-03-25] MEDS: hydrOXYzine PAMOATE 25 MG CAPSULE (FP) PO SCH (05:00)
[2022-03-25] MEDS: methaDONE HCL 40 MG DISPERSABLE TABLET PO SCH (05:00)
[2022-03-25] MEDS: NICOTINE POLACRILEX 4 MG GUM BUC PRN (05:02)
[2022-03-25] MEDS ORDERED: diazePAM 5 MG TABLET PO SCH (06:00)
[2022-03-25] MEDS: NICOTINE 10 MG CARTRIDGE (INHALER) IH PRN (06:01)
[2022-03-25 06:26] VITALS: PULSE 85
[2022-03-25 09:10] VITALS: BP 111/66; TEMP 97.4
[2022-03-26] MEDS ORDERED: diazePAM 5 MG TABLET PO ONE (06:00)
== END 2022-03-25 09:30 | disposition home or self-care (01) | DRG 773 ==
LOC: YASAS 09:42 → Y6N 10:20
PROVIDERS: ADMIT Allergy & Immunology; ATTEND Surgery
PROC: HZ2ZZZZ Detoxification Services for Substance Abuse Treatment (ICD-10-PCS; principal; 2022-03-22)
DX: F13.230 Sedative, hypnotic or anxiolytic dependence with withdrawal, uncomplicated (principal); F11.20 Opioid dependence, uncomplicated; F14.20 Cocaine dependence, uncomplicated; F12.20 Cannabis dependence, uncomplicated; F17.213 Nicotine dependence, cigarettes, with withdrawal; F19.280 Other psychoactive substance dependence with psychoactive substance-induced anxiety disorder; F19.24 Other psychoactive substance dependence with psychoactive substance-induced mood disorder; F41.1 Generalized anxiety disorder; B18.2 Chronic viral hepatitis C; J30.2 Other seasonal allergic rhinitis; R63.4 Abnormal weight loss; Z68.1 Body mass index [BMI] 19.9 or less, adult
CPT/HCPCS: 36415; 80053; 85027; 86780; C9803-CS; U0003; U0005

== ENCOUNTER 2023-01-22 10:23 | Inpatient (IN) | payer OTHER ==
[2023-01-22 12:25] VITALS: BMI 17.0
[2023-01-22] MEDS ORDERED: NALOXONE HCL 0.4 MG/ML VIAL IM PRN (13:00)
[2023-01-22] MEDS ORDERED: POLYETHYLENE GLYCOL (HEALTHYLAX) 3350 17 GM PACKET PO PRN (13:00)
[2023-01-22] MEDS ORDERED: ACETAMINOPHEN 325 MG TABLET (FP) PO PRN (13:00)
[2023-01-22] MEDS ORDERED: MAGNESIUM HYDROX 2400MG/30ML ORAL SUSPENSION 30 ML CUP PO PRN (13:00)
[2023-01-22] MEDS ORDERED: ONDANSETRON *ODT* 4 MG TABLET SL PRN (13:00)
[2023-01-22] MEDS ORDERED: NICOTINE 10 MG CARTRIDGE (INHALER) IH PRN (13:00)
[2023-01-22] MEDS ORDERED: NALOXONE HCL (KLOXXADO) 8 MG SPRAY NS PRN (13:00)
[2023-01-22] MEDS ORDERED: IBUPROFEN 600 MG TABLET (FP) PO PRN (13:00)
[2023-01-22] MEDS ORDERED: BENZONATATE 200 MG CAPSULE PO PRN (13:00)
[2023-01-22] MEDS ORDERED: BENZOCAINE/MENTHOL (CHLORASEPTIC ) LOZENGE MM PRN (13:00)
[2023-01-22] MEDS ORDERED: LOPERAMIDE HCL 2 MG CAPSULE PO PRN (13:00)
[2023-01-22] MEDS ORDERED: DICYCLOMINE HCL 10 MG CAPSULE PO PRN (13:00)
[2023-01-22] MEDS ORDERED: IBUPROFEN 400 MG TABLET (FP) PO PRN (13:00)
[2023-01-22] MEDS ORDERED: MAG HYDROX/AL HYDROX/SIMETH 30 ML UNIT-DOSE CUP PO PRN (13:00)
[2023-01-22] MEDS ORDERED: guaiFENesin 600 MG TABLET.ER (FP) PO PRN (13:00)
[2023-01-22] MEDS ORDERED: BISMUTH SUBSALICYLATE 524 MG/30 ML PO PRN (13:00)
[2023-01-22] MEDS ORDERED: AMMONIUM LACTATE 12% LOTION 225 GM BOTTLE TP PRN (13:00)
[2023-01-22] MEDS ORDERED: ONDANSETRON *ODT* 4 MG TABLET ONE (13:15)
[2023-01-22] MEDS ORDERED: diazePAM 5 MG TABLET PO ONE (13:15)
[2023-01-22] MEDS ORDERED: diazePAM 5 MG TABLET ONE (13:21)
[2023-01-22] MEDS: NICOTINE 21 MG/24 HOURS TOPICAL PATCH TD SCH (14:32)
[2023-01-22 15:49] LABS: HEMATOCRIT 38.7 % (35.4-49); MCH 28.6 pg (25.7-33.7); MCHC 33.7 g/dl (32.0-35.9); MEAN CELL VOLUME 84.9 fl (80-96); MEAN PLT VOLUME 8.4 fl (7.5-11.1); PLATELET COUNT 250 10^3/uL (134-434); RBC 4.56 M/mm3 (4.00-5.60); RDW 15.9 % (11.9-15.9); WHITE BLOOD COUNT 6.6 K/mm3 (4.0-10.0)
[2023-01-22 15:53] LABS: POTASSIUM 5.2 mmol/L (3.5-5.1)
[2023-01-22 16:02] LABS: CALCIUM 9.5 mg/dL (8.5-10.1)
[2023-01-22 16:03] LABS: BLOOD UREA NITROGEN 17.4 mg/dL (7-18)
[2023-01-22 16:04] LABS: CREATININE 0.8 mg/dL (0.55-1.3)
[2023-01-22 16:06] LABS: BILIRUBIN,TOTAL 0.9 mg/dL (0.2-1)
[2023-01-22 16:09] LABS: TOT PROT 8.4 g/dl (6.4-8.2)
[2023-01-22] MEDS: NICOTINE POLACRILEX 2 MG GUM BUC PRN ×2 (17:34→20:23)
[2023-01-22] MEDS: diazePAM 5 MG TABLET PO SCH ×2 (17:34→22:03)
[2023-01-22] MEDS: COLLOIDAL OATMEAL 1 BAR EACH TP PRN (17:49)
[2023-01-22] MEDS: diazePAM 5 MG TABLET PO PRN (20:22)
[2023-01-22] MEDS: THIAMINE HCL 100 MG TABLET (FP) PO SCH (22:03)
[2023-01-22] MEDS: MELATONIN 5 MG TABLETS PO SCH (22:03)
[2023-01-22] MEDS: METHOCARBAMOL 500 MG TABLET PO PRN (22:03)
[2023-01-23] MEDS: NICOTINE POLACRILEX 2 MG GUM BUC PRN ×4 (04:30→22:09)
[2023-01-23] MEDS: diazePAM 5 MG TABLET PO SCH ×4 (05:19→22:07)
[2023-01-23] MEDS: methaDONE 80 MG, methaDONE 20 MG PO SCH (05:19)
[2023-01-23] MEDS ORDERED: methaDONE HCL 10 MG TABLET PO SCH (06:00)
[2023-01-23] MEDS: diazePAM 5 MG TABLET PO PRN ×2 (09:04→12:07)
[2023-01-23] MEDS: PRENATAL VITAMINS W/ FOLIC ACID TABLET (FP) PO SCH (10:20)
[2023-01-23] MEDS: METHOCARBAMOL 500 MG TABLET PO PRN ×2 (10:21→17:31)
[2023-01-23] MEDS: NICOTINE 21 MG/24 HOURS TOPICAL PATCH TD SCH (10:22)
[2023-01-23 11:34] LABS: POTASSIUM 4.3 mmol/L (3.5-5.1)
[2023-01-23 11:38] LABS: BLOOD UREA NITROGEN 15.6 mg/dL (7-18)
[2023-01-23 11:42] LABS: CREATININE 0.7 mg/dL (0.55-1.3)
[2023-01-23] MEDS: THIAMINE HCL 100 MG TABLET (FP) PO SCH (22:06)
[2023-01-23] MEDS: MELATONIN 5 MG TABLETS PO SCH (22:06)
[2023-01-24] MEDS: methaDONE 80 MG, methaDONE 20 MG PO SCH (05:18)
[2023-01-24] MEDS: diazePAM 5 MG TABLET PO SCH ×3 (05:18→21:54)
[2023-01-24] MEDS: NICOTINE POLACRILEX 2 MG GUM BUC PRN ×6 (05:22→21:56)
[2023-01-24] MEDS: PRENATAL VITAMINS W/ FOLIC ACID TABLET (FP) PO SCH (10:25)
[2023-01-24] MEDS: NICOTINE 21 MG/24 HOURS TOPICAL PATCH TD SCH (10:25)
[2023-01-24] MEDS: METHOCARBAMOL 500 MG TABLET PO PRN ×2 (10:26→17:03)
[2023-01-24] MEDS: VITAMINS A AND D TOPICAL OINTMENT 60 GM TUBE TP SCH (17:04)
[2023-01-24] MEDS: MELATONIN 5 MG TABLETS PO SCH (21:53)
[2023-01-24] MEDS: THIAMINE HCL 100 MG TABLET (FP) PO SCH (21:54)
[2023-01-25] MEDS: VITAMINS A AND D TOPICAL OINTMENT 60 GM TUBE TP SCH ×5 (01:04→23:46)
[2023-01-25] MEDS: diazePAM 5 MG TABLET PO SCH ×2 (05:17→17:51)
[2023-01-25] MEDS: methaDONE 80 MG, methaDONE 20 MG PO SCH (05:17)
[2023-01-25] MEDS: PRENATAL VITAMINS W/ FOLIC ACID TABLET (FP) PO SCH (10:20)
[2023-01-25] MEDS: NICOTINE 21 MG/24 HOURS TOPICAL PATCH TD SCH (10:20)
[2023-01-25] MEDS: METHOCARBAMOL 500 MG TABLET PO PRN ×2 (10:22→22:06)
[2023-01-25] MEDS: NICOTINE POLACRILEX 4 MG GUM BUC PRN ×4 (10:24→22:06)
[2023-01-25] MEDS: COLLOIDAL OATMEAL 1 BAR EACH TP PRN (22:06)
[2023-01-25] MEDS: MELATONIN 5 MG TABLETS PO SCH (22:06)
[2023-01-25] MEDS: THIAMINE HCL 100 MG TABLET (FP) PO SCH (22:07)
[2023-01-26] MEDS: methaDONE 80 MG, methaDONE 20 MG PO SCH (05:17)
[2023-01-26] MEDS: NICOTINE POLACRILEX 4 MG GUM BUC PRN ×2 (05:21→09:00)
[2023-01-26] MEDS ORDERED: diazePAM 5 MG TABLET PO ONE (06:00)
[2023-01-26] MEDS: VITAMINS A AND D TOPICAL OINTMENT 60 GM TUBE TP SCH ×2 (06:21→11:00)
[2023-01-26] MEDS: NICOTINE 21 MG/24 HOURS TOPICAL PATCH TD SCH (10:21)
[2023-01-26] MEDS: PRENATAL VITAMINS W/ FOLIC ACID TABLET (FP) PO SCH (10:21)
[2023-01-26 10:29] VITALS: BP 94/57; PULSE 65; RESP 18; TEMP 97.3
== END 2023-01-26 11:30 | disposition other institution (70) | DRG 773 ==
LOC: YASAS 10:23 → Y3N 13:13
PROVIDERS: ADMIT Allergy & Immunology; ATTEND Surgery
PROC: HZ2ZZZZ Detoxification Services for Substance Abuse Treatment (ICD-10-PCS; principal; 2023-01-22)
DX: F10.230 Alcohol dependence with withdrawal, uncomplicated (principal); F13.230 Sedative, hypnotic or anxiolytic dependence with withdrawal, uncomplicated; F11.20 Opioid dependence, uncomplicated; F14.20 Cocaine dependence, uncomplicated; F15.20 Other stimulant dependence, uncomplicated; F12.20 Cannabis dependence, uncomplicated; F17.210 Nicotine dependence, cigarettes, uncomplicated; F41.9 Anxiety disorder, unspecified; E87.5 Hyperkalemia; J30.2 Other seasonal allergic rhinitis; R74.8 Abnormal levels of other serum enzymes; R00.1 Bradycardia, unspecified; R63.4 Abnormal weight loss; Z68.1 Body mass index [BMI] 19.9 or less, adult
CPT/HCPCS: 36415; 80048; 80053; 85027; 86780; 87811; 93005; 93010; C9803-CS; Q0162; U0003; U0005

== ENCOUNTER 2025-01-31 13:40 | Inpatient (IN) | payer OTHER ==
[2025-01-31 13:56] VITALS: BMI 16.8
[2025-01-31] MEDS ORDERED: LOPERAMIDE HCL 2 MG CAPSULE PO PRN (14:36)
[2025-01-31] MEDS ORDERED: POLYETHYLENE GLYCOL (HEALTHYLAX) 3350 17 GM PACKET PO PRN (14:36)
[2025-01-31] MEDS ORDERED: BENZONATATE 200 MG CAPSULE PO PRN (14:36)
[2025-01-31] MEDS ORDERED: MAGNESIUM HYDROX 2400MG/30ML ORAL SUSPENSION 30 ML CUP PO PRN (14:36)
[2025-01-31] MEDS ORDERED: BISMUTH SUBSALICYLATE 262 MG/15 ML BTL PO PRN (14:36)
[2025-01-31] MEDS ORDERED: IBUPROFEN 600 MG TABLET (FP) PO PRN (14:36)
[2025-01-31] MEDS ORDERED: guaiFENesin 600 MG TABLET.ER (FP) PO PRN (14:36)
[2025-01-31] MEDS ORDERED: NALOXONE (NARCAN) HCL 4 MG/0.1 ML SPRAY NS PRN (14:36)
[2025-01-31] MEDS ORDERED: IBUPROFEN 400 MG TABLET (FP) PO PRN (14:36)
[2025-01-31] MEDS ORDERED: DICYCLOMINE HCL 10 MG CAPSULE PO PRN (14:36)
[2025-01-31] MEDS ORDERED: ONDANSETRON *ODT* 4 MG TABLET SL PRN (14:36)
[2025-01-31] MEDS ORDERED: BENZOCAINE/MENTHOL (CHLORASEPTIC ) LOZENGE MM PRN (14:36)
[2025-01-31] MEDS ORDERED: ACETAMINOPHEN 325 MG TABLET (FP) PO PRN (14:36)
[2025-01-31] MEDS: diazePAM 5 MG TABLET PO SCH (17:25)
[2025-01-31] MEDS: MELATONIN 5 MG TABLETS PO SCH (22:00)
[2025-01-31] MEDS: THIAMINE 100 MG TABLET PO SCH (22:01)
[2025-01-31] MEDS: hydrOXYzine PAMOATE 25 MG CAPSULE (FP) PO PRN (22:01)
[2025-02-01] MEDS: diazePAM 5 MG TABLET PO PRN (02:24)
[2025-02-01] MEDS ORDERED: methaDONE HCL 10 MG TABLET PO SCH (08:30)
[2025-02-01] MEDS: NICOTINE POLACRILEX 2 MG GUM BUC PRN (08:34)
[2025-02-01] MEDS: PRENATAL VITAMINS W/ FOLIC ACID TABLET (FP) PO SCH (10:06)
[2025-02-01] MEDS: LORazepam 2 MG TABLET PO SCH (10:06)
[2025-02-01 11:07] LABS: HEMATOCRIT 36.4 % (40.1-51.0); HEMOGLOBIN 11.4 g/dL (13.7-17.5); MCHC 31.3 g/dl (32.3-36.5); MEAN CELL VOLUME 88.8 fl (79.0-92.2); MEAN PLT VOLUME 11.2 fl (9.4-12.4); PLATELET COUNT 230 x10^3/uL (163-337); RDW 13.7 % (12.1-15.9)
[2025-02-01 11:10] LABS: POTASSIUM 4.2 mmol/L (3.5-5.1)
[2025-02-01 11:23] LABS: ALBUMIN 3.8 g/dl (3.4-5.0); BLOOD UREA NITROGEN 14.2 mg/dL (7-18); CALCIUM 9.4 mg/dL (8.5-10.1)
[2025-02-01 11:26] LABS: CREATININE 1.1 mg/dL (0.55-1.3)
[2025-02-01 11:27] LABS: BILIRUBIN,TOTAL 0.4 mg/dL (0.2-1)
[2025-02-01 11:28] LABS: TOT PROT 7.8 g/dl (6.4-8.2)
[2025-02-01] MEDS: LORazepam 1 MG TABLET PO PRN (13:41)
[2025-02-01] MEDS: MAG HYDROX/AL HYDROX/SIMETH 30 ML UNIT-DOSE CUP PO PRN (18:22)
[2025-02-01] MEDS: SUVOREXANT 10 MG TABLET PO PRN (22:08)
[2025-02-02] MEDS: METHOCARBAMOL 500 MG TABLET PO PRN (01:32)
[2025-02-02] MEDS ORDERED: diazePAM 5 MG TABLET PO SCH (06:00)
[2025-02-02] MEDS: NICOTINE POLACRILEX 2 MG GUM BUC PRN (12:23)
[2025-02-03] MEDS: LORazepam 1 MG TABLET PO SCH (05:48)
[2025-02-03] MEDS ORDERED: diazePAM 5 MG TABLET PO SCH (06:00)
[2025-02-03 12:40] VITALS: BP 119/72; PULSE 94; RESP 18; TEMP 98
[2025-02-04] MEDS ORDERED: LORazepam 0.5 MG TABLET PO PRN
[2025-02-04] MEDS ORDERED: LORazepam 0.5 MG TABLET PO SCH (05:00)
[2025-02-04] MEDS ORDERED: diazePAM 5 MG TABLET PO ONE (06:00)
[2025-02-05] MEDS ORDERED: LORazepam 0.5 MG TABLET PO ONE (05:00)
== END 2025-02-03 14:57 | disposition other institution (70) | DRG 773 ==
LOC: YASAS 13:40 → Y6N 15:48
PROVIDERS: ADMIT Allergy & Immunology; ATTEND Allergy & Immunology
PROC: HZ2ZZZZ Detoxification Services for Substance Abuse Treatment (ICD-10-PCS; principal; 2025-01-31)
DX: F10.230 Alcohol dependence with withdrawal, uncomplicated (principal); F14.20 Cocaine dependence, uncomplicated; F13.20 Sedative, hypnotic or anxiolytic dependence, uncomplicated; F11.20 Opioid dependence, uncomplicated; F17.210 Nicotine dependence, cigarettes, uncomplicated; F19.282 Other psychoactive substance dependence with psychoactive substance-induced sleep disorder; F19.24 Other psychoactive substance dependence with psychoactive substance-induced mood disorder; J30.2 Other seasonal allergic rhinitis; J45.909 Unspecified asthma, uncomplicated
CPT/HCPCS: 36415; 80053; 80305; 80307; 85027; 86780; 87811; 93005; 93010